=== PATIENT | female | born 1975 | race African-American/Black ===

== ENCOUNTER 2021-05-23 11:57 | Emergency (ER) | payer OTHER, SELFPAY ==
[~2021-05-23] VITALS: Ht 160 cm; Wt 81.6 kg
[~2021-05-23 11:57] MED LIST: PREN-385 PO
[2021-05-23 12:12] VITALS: BP 140/108
[2021-05-23] MEDS ORDERED: PROC-66 PO (13:47)
--- NOTE | 2021-05-23 17:19 | NUR ---
PT CLEARED FOR DISCHARGE BY DR MOSES, PT LEFT WITHOUT D/C PAPERWORK,. Addendum: 05/23/21 at 1826 by [email or web address] PT RETURNED BACK, Patient discharged with v/s stable. Written and verbal after care instructions ABOUT COVID 19 AND VIRAL ILLNESS given and explained. Patient alert, oriented and verbalized understanding of instructions. Ambulatory with steady gait. All questions addressed prior to discharge. ID band removed. Patient advised to follow up with PMD. Rx of COMPAZINE given. Patient educated on indication of medication including possible reaction and side effects. Opportunity to ask questions provided and answered.
== END 2021-05-23 18:24 | disposition home or self-care (01) ==
LOC: MED 11:57
DX: B34.9 Viral infection, unspecified (principal); Z20.822 Contact with and (suspected) exposure to COVID-19; I10 Essential (primary) hypertension; E78.5 Hyperlipidemia, unspecified; Z79.899 Other long term (current) drug therapy
CPT/HCPCS: 99283; U0003